=== PATIENT | male | born 1975 | race Caucasian/White ===

== ENCOUNTER → 2017-02-23 | Outpatient (CLI) | payer OTHER ==
--- NOTE | 2017-02-24 08:58 | RAD ---
EXAM DESCRIPTION: Lumbar Spine 5 Views CLINICAL HISTORY: 41 years Male, LEFT SCIATICA PAIN IMPRESSION: 5 views of the lumbar spine reveals mild levoscoliosis. No intervertebral disc height loss. No osseous lesion. Vertebral body heights are unremarkable. No pars defects noted. Electronically signed by: Ankit Gardner MD 02/24/2017 8:57 AM CDT
== END ==
LOC: YCFC.O 11:16
PROVIDERS: ATTEND Nurse Practitioner Family
DX: M54.32 Sciatica, left side (principal); M41.86 Other forms of scoliosis, lumbar region